=== PATIENT | male | born 1985 | race Caucasian/White ===

== ENCOUNTER 2017-09-27 02:51 | Emergency (ER) | payer SELFPAY, OTHER ==
[2017-09-27] MEDS: ACETAMINOPHEN 325 MG TAB PO (06:54)
[2017-09-27] MEDS: ONDANSETRON (ODT) 4 MG TAB ODT (06:54)
== END 2017-09-27 10:00 | disposition home or self-care (01) ==
LOC: FTE 02:51
DX: S82.832A Other fracture of upper and lower end of left fibula, initial encounter for closed fracture (principal); R93.0 Abnormal findings on diagnostic imaging of skull and head, not elsewhere classified; Y04.8XXA Assault by other bodily force, initial encounter
CPT/HCPCS: 29515; 70450; 70480; 73610; 99285-25

== ENCOUNTER 2017-10-12 08:47 | Day surgery (SDC) | payer MEDICAID, OTHER ==
[~2017-10-12 08:47] MED LIST: ATROPINE 1 MG/10 ML SYRINGE IV; CEFAZOLIN 1 GM INJ; DEXAMETHASONE 4 MG/ML 1 ML INJ; DIPHENHYDRAMINE 50 MG INJ IV; EPHEDrine SULFATE 50 MG/5 ML SYG IV; FENTAnyl 50 MCG/ML VIAL IV; HYDROmorphONE (0.2 MG/ML) 10ML SYG IV; LABETALOL 100MG INJ; LABETALOL HCL 20MG INJ IV; MEPERIDINE 25 MG INJ IV; MIDAZOLAM 1 MG/ML 2 ML INJ IV; ONDANSETRON 4 MG INJ IV; OXYCODONE/ACETAMINOPHEN (5/325) TAB PO; ROPIVACAINE 0.5 % 30 ML VIAL; SUCCINYLCHOLINE CHLORIDE 100 MG/5 ML SYG IV; hydrALAzine 20 MG INJ; hydrALAzine 20 MG INJ IV; morphine (1 MG/ML) 10ML SYRINGE IV
[2017-10-12] MEDS ORDERED: ROCURONIUM 50 MG INJ ×3 (11:09)
[2017-10-12] MEDS ORDERED: PROPOFOL 20 ML ×3 (11:09)
[2017-10-12] MEDS ORDERED: NEOSTIGMINE 3 MG/3 ML SYRINGE ×3 (11:09)
[2017-10-12] MEDS ORDERED: FENTAnyl 50 MCG/ML VIAL ×3 (11:09)
[2017-10-12] MEDS ORDERED: MIDAZOLAM 1 MG/ML 2 ML INJ ×3 (11:09)
[2017-10-12] MEDS ORDERED: GLYCOPYRROLATE 0.4 MG INJ ×3 (11:09)
[2017-10-12] MEDS ORDERED: LIDOCAINE 2% (SDV) 5 ML INJ ×3 (11:09)
[2017-10-12] MEDS ORDERED: SUGAMMADEX SODIUM 200 MG/2 ML VIAL IV ×3 (11:31)
[2017-10-12] MEDS ORDERED: ONDANSETRON 4 MG INJ ×3 (11:32)
[2017-10-12] MEDS: POLYMYXIN/BACITRACIN 1L IRRIG IRR ×3 (14:52)
[2017-10-12] MEDS ORDERED: ROPIVACAINE 0.5 % 30 ML VIAL ×3 (15:55)
[2017-10-12] MEDS ORDERED: SOD CHLORIDE 0.9% 1,000 ML IV ×3 (16:53)
[2017-10-12] MEDS ORDERED: morphine 2 MG INJ IV ×3 (17:00)
[2017-10-12] MEDS ORDERED: ONDANSETRON 4 MG INJ IV ×3 (17:00)
[2017-10-12] MEDS ORDERED: OXYCODONE/ACETAMINOPHEN (5/325) TAB PO ×6 (17:00)
[2017-10-12] MEDS: morphine (1 MG/ML) 10ML SYRINGE IV ×9 (17:19→17:49)
== END 2017-10-12 19:08 | disposition home or self-care (01) ==
LOC: SDS 08:47
DX: M25.372 Other instability, left ankle (principal); S82.62XD Displaced fracture of lateral malleolus of left fibula, subsequent encounter for closed fracture with routine healing; X58.XXXD Exposure to other specified factors, subsequent encounter; M24.072 Loose body in left ankle; M25.772 Osteophyte, left ankle
CPT/HCPCS: 27792; 73610

== ENCOUNTER 2019-04-23 01:13 | Emergency (ER) | payer SELFPAY, MEDICAID ==
[2019-04-23] MEDS: IBUPROFEN 600 MG TAB PO (02:00)
[2019-04-23] MEDS ORDERED: DOXYCYCLINE 100 MG TAB PO (02:00)
[2019-04-23] MEDS: DOXYCYCLINE 100 MG TAB PO (02:03)
== END 2019-04-23 02:48 | disposition home or self-care (01) ==
LOC: FTE 01:13
DX: M79.674 Pain in right toe(s) (principal); F17.210 Nicotine dependence, cigarettes, uncomplicated
CPT/HCPCS: 99283